=== PATIENT | male | born 1960 | race Hispanic/Latino ===

== ENCOUNTER 2017-12-28 21:25 | Emergency (ER) | payer BC, OTHER ==
[2017-12-28 22:24] VITALS: BP 152/82; PULSE 88; RESP 16; TEMP 101.1; O2SAT 97
[2017-12-28] MEDS ORDERED: Clindamycin 600mg/50ml NS 600 MG/50 ML BAG IVPB STA (23:13)
--- NOTE | 2017-12-28 23:42 | ED PDOC ---
HPI: Dental Pain/Injury Time Seen by Provider: 12/28/17 22:36 Chief Complaint (Nursing): Dental Pain Chief Complaint (Provider): Dental Pain/Fever History Per: Patient History/Exam Limitations: no limitations Onset/Duration Of Symptoms: Days (x1) Current Symptoms Are (Timing): Still Present Additional Complaint(s): Prakash Awad is a 57 year old male that presents to the ED with a chief complaint of toothache and fever. Patient reports that he underwent a root canal procedure yesterday, 12/27/17, with cephalometric tracer Dr. Cxo in [place], and that he has developed pain and swelling at the tooth since then. Patient states that he spoke on the phone with his doctor, who initially prescribed him Amoxicillin and Tylenol 3, but that the pain persisted, and that he was also prescribed Ibuprofen 800 and Percocet, but that those did not relieve his pain either. This evening, the patient states that he developed fever and increased swelling, as well as diffuse headache. He denies rhinorrhea, sore throat, or cough. PMD: in [place] Past Medical History Reviewed: Historical Data, Nursing Documentation, Vital Signs Vital Signs: Last Vital Signs Temp 101.1 F H 12/28/17 22:20 Pulse 88 12/28/17 22:20 Resp 16 12/28/17 22:20 BP 152/82 H 12/28/17 22:20 Pulse Ox 97 12/28/17 22:20 - Medical History PMH: Hypercholesterolemia - Family History Family History: States: Hypertension - Social History Current smoker - smoking cessation education provided: No - Allergies Allergies/Adverse Reactions: Allergies Allergy/AdvReac Type Severity Reaction Status Date / Time No Known Allergies Allergy Verified 12/28/17 22:20 Review of Systems ROS Statement: Except As Marked, All Systems Reviewed And Found Negative Constitutional: Positive for: Fever ENT: Positive for: Other (toothache). Negative for: Nose Discharge, Throat Pain Respiratory: Negative for: Cough Neurological: Positive for: Headache (diffuse) - Laboratory Results Result Diagrams: 12/28/17 23:30 12/28/17 23:30 - ECG O2 Sat by Pulse Oximetry: 97 (RA) Pulse Ox Interpretation: Normal Medical Decision Making Medical Decision Making: Impression: Febrile Illness, ddx include but not limited to Viral Syndrome vs. Dental Abscess vs. Post-Surgical Pain vs. Sepsis Plan: * CT Maxillofacial with contrast * CMP * CBC * Lactic Acid * Tylenol 950 mg PO * Clindamycin 600 mg in 50 mL IV * Toradol 30 mg IV * Blood Culture * Flu Swab * Reevaluation 00:00 Patient signed out to Dr. Little pending ER workup, reassessment, and final ER disposition. Scribe Attestation: Documented by Rachel Ferrera, acting as a scribe for Kyra Enriquez MD. Provider Scribe Attestation: All medical record entries made by the Scribe were at my direction and personally dictated by me. I have reviewed the chart and agree that the record accurately reflects my personal performance of the history, physical exam, medical decision making, and the department course for this patient. I have also personally directed, reviewed, and agree with the discharge instructions and disposition. Disposition - Clinical Impression Clinical Impression: Febrile illness - Patient ED Disposition Is Patient to be Admitted: Transfer of Care - Disposition Disposition: Transfer of Care Disposition Time: 00:00 Condition: FAIR Forms: [employer] (Sudanese) Patient Signed Over To: Delia Little
[2017-12-28 23:53] LABS: BASO % 0.2 % (0.0-2.0); EOS % 0.3 % (0.0-4.0); HEMOGLOBIN 15.3 g/dL (12.0-18.0); LYMPH # 1.1 K/uL (1.0-4.3); MEAN CELL VOLUME 92.9 fl (80.0-94.0); MEAN CORPUSCULAR HEMOGLOBIN 30.6 pg (27.0-31.0); MEAN PLATELET VOLUME 10.1 fl (7.2-11.7); MONO # 1.2 K/uL (0.0-0.8); MONO % 7.6 % (0.0-10.0); NEUT % 84.9 % (50.0-75.0); PLATELET COUNT 160 K/uL (130-400); RBC 4.99 Mil/uL (4.40-5.90); RED CELL DISTRIBUTION WIDTH 13.9 % (11.5-14.5); WHITE BLOOD COUNT 15.3 K/uL (4.8-10.8)
[2017-12-28 23:58] LABS: ALB/GLOB RATIO 1.3 (1.0-2.1); GFR AFRICAN-AMERICAN > 60; GFR NON-AFRICAN AMERICAN > 60
[2017-12-28 23:59] LABS: ALT/SGPT 51 U/L (21-72); AST/SGOT 39 U/L (17-59); BLOOD UREA NITROGEN 18 mg/dl (9-20)
--- NOTE | 2017-12-29 00:29 | ED PDOC ---
- Laboratory Results Result Diagrams: 12/28/17 23:30 12/28/17 23:30 - ECG O2 Sat by Pulse Oximetry: 97 (RA) Medical Decision Making Medical Decision Makin:00 Patient signed out to me by pending ER workup, reassessment, and final ER disposition. CT Maxillofacial with IV Contrast FINDINGS: Bones/joints: No acute fracture. Soft tissues: Limited evaluation of the perimandibular and maxillary soft tissues secondary to metallic streak artifact from the patient's dental hardware. Orbits: Preserved. Sinuses: Opacification and distention of the right maxillary sinus. IMPRESSION: Opacification and distention of the right maxillary sinus. Limited evaluation secondary to metallic streak artifact from the patient's hardware. Scribe Attestation: Documented by Rachel Ferrera, acting as a scribe for Delia Little MD. Provider Scribe Attestation: All medical record entries made by the Scribe were at my direction and personally dictated by me. I have reviewed the chart and agree that the record accurately reflects my personal performance of the history, physical exam, medical decision making, and the department course for this patient. I have also personally directed, reviewed, and agree with the discharge instructions and disposition. On reevaluation, patient feels better. He can follow-up with his oral surgeon tomorrow and has prescription for amoxicillin. Phonating normally and tolerating po. Has percocet rx at home for pain. Disposition - Clinical Impression Clinical Impression: Tooth pain, Febrile illness - POA Present On Arrival: None - Disposition Disposition: Routine/Home Disposition Time: 01:51 Condition: FAIR Additional Instructions: Follow-up with oral surgeon tomorrow. Continue amoxicillin. Return to ED if condition worsens. Percocet for severe pain. Motrin for mild pain. Instructions: Toothache (ED) Forms: [employer] (Spanish)
[2017-12-29] MEDS ORDERED: Sodium Chloride 0.9% 50 ML IV ONE (00:43)
[2017-12-29] MEDS ORDERED: Iohexol 300 100 ML IJ ONE (00:43)
[2017-12-29 00:57] LABS: EOSINOPHIL 1 % (0-7); LARGE PLATELETS PRESENT; LYMPHOCYTE 4 % (20-50); MONOCYTE 9 % (0-10); NEUTROPHIL 82 % (42-75); PLATELET ESTIMATE NORMAL (NORMAL); REACTIVE LYMPHOCYTES 4 % (0-0); TOTAL CELLS COUNTED 100
[2017-12-29 00:58] LABS: TOXIC GRANULATION PRESENT
--- NOTE | 2017-12-29 10:47 | CT ---
PROCEDURE: CT MAXILLOFACIAL BONES WITH CONTRAST HISTORY: RIGHT mandibular pain and swelling and fever COMPARISON: None. TECHNIQUE: Contiguous axial CT images of the maxillofacial bones were obtained following administration of IV contrast. Coronal and sagittal reformats were generated. Intravenous contrast Dose: 85 cc of Omnipaque 300. Radiation dose: Total exam DLP = 730.88 mGy-cm. This CT exam was performed using one or more of the following dose reduction techniques: Automated exposure control, adjustment of the mA and/or kV according to patient size, and/or use of iterative reconstruction technique. FINDINGS: NASAL BONES: Unremarkable. ORBITS: Unremarkable. PARANASAL SINUSES/ MASTOIDS: There is complete opacification of the right maxillary sinus demonstrate mild distension and mild thick wall suggestive of sinusitis which could be chronic. Mild mucosal thickening is also noted in the left maxillary sinus and the inferior aspect of the left frontal sinus. MAXILLA: There is no evidence of acute fracture. There is focal lucency around the root of the 2nd right molar teeth may represent periodontal abscess. MANDIBLE/ TEMPOROMANDIBULAR JOINTS: Unremarkable. SKULL BASE: Unremarkable. TEMPORAL BONES: Middle ears and mastoid grossly unremarkable. OTHER FINDINGS: Streak artifacts from the teeth filling degraded the evaluation of the maxilla and mandibular bone IMPRESSION: Complete opacification of the mildly distended right maxillary sinus demonstrate mild wall thickening suggestive of sinusitis. 8 x 5.5 millimeter lucency around the root of the right 2nd maxillary molar tooth suspicious for periodontal infection. Preliminary report was submitted by [facility].
== END 2017-12-29 02:00 | disposition home or self-care (01) ==
LOC: H.ER 21:25
DX: R50.9 Fever, unspecified (principal); K08.89 Other specified disorders of teeth and supporting structures; E78.00 Pure hypercholesterolemia, unspecified
CPT/HCPCS: 70488; 80053; 83605; 85025; 87040; 87804; 96374; 96375; 99281; J1170; J1885; Q9967